=== PATIENT | male | born 1965 | race Caucasian/White ===

== ENCOUNTER 2020-08-07 07:20 | Emergency (ER) | payer OTHER ==
[2020-08-07 07:27] VITALS: BP 164/95; PULSE 60; TEMP 97.5; BMI 24.6
[2020-08-08 17:07] LABS: IgG Ab 23 kDa Band Present (.); IgG Ab 28 kDa Band Present (.)
== END 2020-08-07 08:00 | disposition home or self-care (01) ==
LOC: FER 07:20
DX: R21 Rash and other nonspecific skin eruption (principal)
CPT/HCPCS: 36415; 86618; 99283-25